=== PATIENT | male | born 1955 | race Caucasian/White ===

== ENCOUNTER 2017-03-01 13:00 | Inpatient (IN) | payer OTHER ==
[~2017-03-01] VITALS: Ht 175.3 cm; Wt 93.1 kg
--- NOTE | ~2017-03-01 | HP ---
PATIENT'S NAME: DAMARIS BRISENO [facility] AGE: 61 Y [address] ROOM: [place] [address] [place] [facility] [place] DATE: 03/01/2017 History & Physical DISCHARGE DATE: FAMILY PHYSICIAN: Sylvain Flores MD ATTENDING PHYSICIAN: David HOUSTON DATE OF SERVICE: CHIEF COMPLAINT: Infected diabetic foot ulcer. HISTORY OF PRESENT ILLNESS: The patient is a 61-year-old gentleman with a history of diabetes mellitus, type 2 and diabetic neuropathy who presents here from [facility] with diabetic foot ulcer. The patient was initially seen by his primary care physician and was started on oral antibiotic for his diabetic foot ulcer. The patient was started on Bactrim. The patient was treated for 10 days, however, symptoms did not improve. The patient's right foot diabetic ulcer increased in size, and swelling and erythema. The patient was admitted to [facility] on 02/27/2017 and was started on gentamicin and Rocephin. While inpatient, the patient was also seen by Podiatry. The patient was transferred to our facility for Vascular Surgery evaluation. The patient currently denies chest pain, shortness of breath, fever, chills, abdominal pain, nausea, vomiting, weight loss, night sweats, poor appetite, diarrhea, or constipation. At the outside hospital, wound culture was taken and showed beta-hemolytic streptococcus. PAST MEDICAL HISTORY: 1. Diabetes mellitus, type 2. 2. Hypertension. 3. Hyperlipidemia. PAST SURGICAL HISTORY: He has no surgical history. FAMILY HISTORY: Father has a history of coronary artery disease. Mother had history of lung cancer. 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 He denies smoking and drinking. MEDICATIONS: PATIENT'S NAME: DAMARIS BRISENO [facility] AGE: 61 Y [address] ROOM: [place] [address] LOC[place]: [facility] [place] ADMIT DATE: 03/01/2017 History & Physical DISCHARGE DATE: FAMILY PHYSICIAN: Sylvain Flores MD ATTENDING PHYSICIAN: David HOUSTON Currently being reconciled. REVIEW OF SYSTEMS: All systems have been reviewed and are negative except for what I mentioned in the HPI. PHYSICAL EXAMINATION: VITAL SIGNS: Temperature 98.9, blood pressure 136/78, pulse rate of 66, and respiratory rate 16. GENERAL APPEARANCE: The patient is lying on bed in no acute distress. HEENT: Head; normocephalic and atraumatic. Eyes; extraocular muscles intact. Nose; no nasal discharge. Ears; no ear discharge. Oral cavity; dry oral mucosa. CHEST: Clear to auscultation bilaterally. HEART: Regular rate and rhythm. Grade 2 systolic murmur heard in the left 6th intercostal. ABDOMEN: Soft, nontender, and nondistended. Bowel sounds present. SKIN: Warm to touch. WHARFINGER CHIEF: The patient is alert and oriented x3. Motor and sensory grossly intact. EXTREMITIES: Right foot medial aspect of the MTP shows ulceration with necrotic change and granulation. No drainable abscess is noted. Moderate erythema surrounds the ulcer. Also noted the patient to have right 3rd toe necrotic changes and swelling. Bilateral lower extremity dorsalis pedis artery pulses present, 2+. LABORATORY DATA AND IMAGING STUDIES: Laboratories done from the outside hospital shows elevated gentamicin level of 3.89 ug/mL. White blood cell count of 19, hemoglobin of 13.0, and platelets of 383,000. These laboratories were from February 27. Wound culture from the outside hospital shows beta-hemolytic streptococcus. ASSESSMENT AND PLAN: 1. Diabetic foot ulcer with cellulitis. There is a concern for infection of bone and osteomyelitis. Even though, wound culture shows beta-hemolytic streptococcus, we will broaden the patient's antibiotic. We will avoid vancomycin since the patient has high gentamicin trough level of 3.89. We will start the patient on Zyvox for methicillin-resistant Staphylococcus aureus coverage, and also add cefepime for gram-negative coverage with Pseudomonas coverage. We will acquire blood culture x2. We will also acquire sedimentation rate, lactate, and procalcitonin. Discussed the case with Dr. Louis to acquire MRI with and without contrast of the foot to further investigate osteomyelitis. 2. Diabetes mellitus, type 2. We will hold metformin for now. We will continue Januvia and glipizide. We will add sliding scale insulin. PATIENT'S NAME: DAMARIS BRISENO [facility] AGE: 61 Y [address] ROOM: [place] [address] LOC[place]: [facility] [place]MIT DATE: 03/01/2017 History & Physical DISCHARGE DATE: FAMILY PHYSICIAN: Sylvain Flores MD ATTENDING PHYSICIAN: David HOUSTON 3. Hypertension, stable. We will continue home medication. 4. Hyperlipidemia. We will continue simvastatin. Greater than 45 minutes were spent on patient's care. 50% of the time was spent with direct patient's care. Discussed the case with Dr. Flores, who is the doctor from [place]. Also discussed the case with Dr. Louis. The patient's questions were answered with satisfaction. Code status on admission, full code. MD NIELS CADE/modl /[id number] D: [id number] T: [id number] HISTORY & PHYSICAL
--- NOTE | ~2017-03-01 | OR ---
PATIENT'S NAME: DAMARIS BRISENO [facility] AGE: 61 Y [address] ROOM: [place] [address] [place] [facility] [place]: 03/01/2017 OR/Procedure Report DISCHARGE DATE: FAMILY PHYSICIAN: Sylvain Flores MD ATTENDING PHYSICIAN: David HOUSTON SURGEON: Jeevan Louis MD DUTY ENGINEER: DATE OF PROCEDURE: 03/08/2017 PREOPERATIVE DIAGNOSIS: Infected diabetic foot. POSTOPERATIVE DIAGNOSIS: Infected diabetic foot. PROCEDURE: Sharp debridement of previous TMA site with closure of wound. INTERNATIONAL BANK MANAGER: Tosha Milligan. ANESTHESIA: General. ESTIMATED BLOOD LOSS: 20 mL. OPERATIVE FINDINGS: Closure of wound at the end of case. DESCRIPTION OF PROCEDURE: The patient was brought to the operating room, placed supine on table, prepped and draped in a sterile manner after being placed under general anesthesia. The patient had received antibiotics on the floor. The patient is status post guillotine TMA approximately five days ago. He is not here for wound washout and possible closure. We irrigated the wound with pulse irrigation, then we sharply debrided any remaining nonviable tissue. We explored the wound to make sure there was no further pus pockets and we did not find any. We then once again copiously irrigated the wound and then we reapproximated the anterior and posterior flaps with interrupted 1-0 nylon mattress sutures. On completion, the wound was then completely closed. The foot was wrapped in with a Kerlix, Regulo wrap. The patient was awoken in the operating room, transferred to the recovery room, back up to the floor. JEEVAN LOUIS MD FKM/modl /[id number] d: 03/09/17140 t: 03/18/171811, OPERATIVE SUMMARY
--- NOTE | ~2017-03-01 | OR ---
PATIENT'S NAME: DAMARIS BRISENO [facility] AGE: 61 Y [address] ROOM: [place] [address] [place] [facility] [place]: 03/01/2017 OR/Procedure Report DISCHARGE DATE: FAMILY PHYSICIAN: Sylvain Flores MD ATTENDING PHYSICIAN: David HOUSTON SURGEON: Jeevan Louis MD SAND TESTER: DATE OF PROCEDURE: 03/02/2017 PREOPERATIVE DIAGNOSIS: Infected diabetic foot. POSTOPERATIVE DIAGNOSIS: Infected diabetic foot. PROCEDURE: Guillotine right foot transmetatarsal amputation. INFORMATION SECURITY SYSTEMS INSTRUCTOR: Ofelia Oleary MD. ANESTHESIA: General. ESTIMATED BLOOD LOSS: 100 mL. OPERATIVE FINDINGS: Severe osteomyelitis with necrotic tissue surrounding all the toes of the foot, resected back to clean margins. Wound was left open. DESCRIPTION OF PROCEDURE: The patient was brought to the operating room, placed under general anesthesia, prepped and draped in a sterile manner. Preoperative time-out was performed. The patient received preoperative antibiotics. We made a base of toe incision around all 5 toes with immediate evacuation of pus, especially from the great toe. We then transected all the metatarsal bones using a reticulating saw. There was a large amount of necrotic tissue, especially on the plantar surface, which was all sharply resected. We then resected back the bones further back to healthy-sounding bone which did not appear osteomyelitic. We sent bone cultures as well as wound cultures. We then copiously irrigated the wound with antibiotic solution. We achieved hemostasis. After allowing the tourniquet to come down, we used a total tourniquet time of 27 minutes. We then irrigated the wound with Dakin solution and then packed it with Dakin solution for antibiotic coverage. We then wrapped the foot in Kerlix and Regulo. The patient tolerated the procedure well and transferred to the recovery room and up to the floor. JEEVAN LOUIS MD PATIENT'S NAME: DAMARIS BRISENO [facility] AGE: 61 Y [address] ROOM: [place] [address] [place] [facility] [place]: 03/01/2017 OR/Procedure Report DISCHARGE DATE: FAMILY PHYSICIAN: Sylvain Flores MD ATTENDING PHYSICIAN: David HOUSTON/ace /[id number] d: 03/02/17 1805 t: 03/06/17 1544, OPERATIVE SUMMARY
--- NOTE | ~2017-03-01 | DS ---
PATIENT'S NAME: DAMARIS BRISENO [facility] AGE: 61 Y [address] ROOM: [address] [place], [place] [address] LOCATION: [facility] [place] ADMIT DATE: 03/01/2017 Discharge Summary DISCHARGE DATE: 03/12/2017 FAMILY PHYSICIAN: Sylvain Flores MD ATTENDING PHYSICIAN: David Jimenez PRINCIPAL DIAGNOSES: 1. Diabetic foot infection. 2. Diabetes mellitus type 2, poorly controlled. 3. Essential hypertension. 4. Hyperlipidemia. CONSULTING PROVIDER: Dr. Jeevan Louis, Vascular. PRINCIPAL PROCEDURES: Principal procedures occurred while hospitalized; 1. Guillotine right foot transmetatarsal amputation on 03/02/2017. 2. Sharp debridement of previous amputation site with closure of wound on 03/08/2017. HOSPITAL COURSE: Please reference any of the admitting data to the history and physical as dictated by Dr. David Jimenez. A 61-year-old with a history significant for type 2 diabetes mellitus and neuropathy, who presented with a diabetic foot ulcer with surrounding cellulitis and concern for infection of the bone. Sepsis workup was obtained. The patient was started on Zyvox and cefepime intravenously. A Vascular Surgery consult was ordered. MRI was considered but deferred, and the patient was taken for right transmetatarsal amputation and the findings included severe osteomyelitis with necrotic tissue surrounding the toes of the foot. It was resected back to clean margins and the wound was left open. The patient was given oral and IV analgesia. He was made nonweightbearing and given physical therapy. The patient was made daily wet-to-dry dressing changes with Dakin solution. Cultures from an initial swab showed group B Strep agalactiae and Staphylococcus lugdunensis with moderate growth. Blood cultures remained negative. The patient was discussed in depth with Infectious Disease and IV antibiotics were narrowed accordingly. Vascular surgeon felt the patient should require at least four weeks of antibiotics. Drug of choice was Ancef. The patient then went for closure on 03/08/2017 without any complications. Dressing changes were changed to Betadine swab and twice daily dry dressings. A PICC line was then placed after approval from vascular surgeon. Home antibiotics were arranged. The patient's diabetes was managed with insulin. His A1c was 8.9. We did have Diabetes Education evaluate the patient and give him further or intensive education on the importance of diabetes management. We titrated Levemir and PATIENT'S NAME: DAMARIS BRISENO [facility] AGE: 61 Y [address] ROOM: [address] [facility] [facility] [address] LOCATION: [facility] [place]MIT DATE: 03/01/2017 Discharge Summary DISCHARGE DATE: 03/12/2017 FAMILY PHYSICIAN: Sylvain Flores MD ATTENDING PHYSICIAN: David Jimenez trialed prandial and corrective insulin. Sugars still remained labile between 100 and 300. He was given further dietary instructions. By the day of discharge, the patient was transitioned back to his oral anti-glycemic regimen and recommended to take his blood sugar at least two or three times daily with close followup with his primary care provider as the patient may require further control as an outpatient. Close observation of his lab findings were monitored. Initial presentation showed significant leukocytosis which had resolved by the day of discharge. His creatinine which was initially normal did increase to 1.5, and with some IV hydration, returned to 1.2 and 1.3 respectively. The patient was seen by both Physical Therapy and Occupational Therapy and was evaluated and treated appropriately. The patient was felt stable enough to transition to the home setting. LABORATORY DATA: Pertinent positives as described above. Hemoglobin A1c was 8.9. The patient's initial presentation found a white blood cell count of 19.6, normalizing to 9.9; hemoglobin of 12.1; hematocrit of 36.6; and platelet count 259. His renal function showed a BUN of 21 and a creatinine of 1.3 down from 1.5. Sodium 136, potassium 4.8, chloride 103, CO2 of 26, calcium 8.1. Albumin of 2.3. Phosphorus of 2.9. His sedimentation rate was 105 and 92 respectively. CRP of 1.60. Procalcitonin level of 0.15. Vitamin D level still pending at the time of discharge. Microbiology data showed a blood culture that was no growth. A left foot swab showing Strep agalactiae group B, moderate growth and Staphylococcus lugdunensis, moderate growth. Surgical path report shows ulceration with extensive ischemic changes, but no evidence of osteomyelitis was identified pathology. Echocardiogram; estimated left ventricular ejection fraction of 50% to 55% with mild concentric left ventricular hypertrophy. The right and left atrium were mildly dilated. There is mild pulmonary hypertension noted. DISCHARGE MEDICATIONS: 1. Cefazolin 2 g intravenous every 8 hours for 4 weeks, stop date 04/07/2017. 2. Amlodipine 10 mg p.o. every day. 3. Vitamin B12, 1000 mcg p.o. every day. 4. Enalapril 5 mg p.o. twice daily. 5. Florastor 250 mg p.o. twice daily. 6. Janumet mg p.o. twice daily. PATIENT'S NAME: DAMARIS BRISENO [facility] AGE: 61 Y [address] ROOM: [place] [address] LOCATION: [facility] [place]MIT DATE: 03/01/2017 Discharge Summary DISCHARGE DATE: 03/12/2017 FAMILY PHYSICIAN: Sylvain Flores MD ATTENDING PHYSICIAN: David Jimenez 7. Glucotrol 10 mg p.o. twice daily before meals. 8. Iron 5/325 mg 1 to 2 tablets p.o. every 4 hours as needed for pain. DISCHARGE INSTRUCTIONS: The patient will be discharged to home with his spouse. His diet; he is to remain on cardiac and diabetic approved with low fat, low salt, low cholesterol, low carbs. His activity is as tolerated with no weightbearing to the right foot, a scooter prescription was written. Physical Therapy prescription was written. Dressings to the right foot are to be a dry dressing changed twice daily and p.r.n. saturation. Betadine painting to the wound every day. The patient should remain on Ancef 2 g IV every 8 hours with weekly CBC, BMP, CRP, and sedimentation rate, faxed to Infectious Disease, for at least four weeks with definite plan to be determined by Infectious Disease followup. FOLLOWUP: Follow up with Dr. Louis is to be in 2 weeks. Follow up with Infectious Disease is to be in 2 weeks. Follow up with Dr. Flores on March 19 at 10 a.m. He is requested to check his blood sugar 2 to 3 times daily and take to followup with his PCP. Total time in coordinating discharge plan was greater than 35 minutes. Thank you for allowing us to participate in the care of this patient by [facility]. GREGORIA BENAVIDES APRN, APRN FOR MD SHANEL LUNA/ace /[id number] CC: MD Sylvain Rodriguez MD d: t: 03/13/17 0133, DISCHARGE SUMMARY
--- NOTE | ~2017-03-01 | ECHO ---
Transthoracic Echocardiography Report (TTE) Demographics Patient Name DAMARIS BRISENO Date of Study 03/08/2017 Patient Number [id number] Visit Number [id number] Date of 1955 Room Number [address] Accession Number [id number] Gender Male Age 61 year(s) Referring Cherelleolvin Narayan Wesley Brand Ambassador Promotional Model Shahida Nicole RVT Physician Miladis Hernandez Physician Interpreting Alla Lo MD Primary Grade Teacher Physician Nae Thomas MD Supervising Ordering Physician Barbara Hernandez MD/MLP Nurse Stress Wire Rope Fabrication Supervisor Conclusions Contractility Score Summary Normal Left Ventricular contractility was noted. Summary Definity images are 81-86. The estimated left ventricular ejection fraction is 50-55%. Mild concentric left ventricular hypertrophy.Normal internal dimension.WMAs are difficult to comment on. Mildly dilated LA. The right atrium is mildly dilated. Mild mitral annular calcification. Mild mitral regurgitation by color Doppler. The aortic valve is mildly sclerotic with mild valvular . There is mild aortic regurgitation by color Doppler. Mild tricuspid regurgitation by color Doppler. There is mild pulmonary hypertension. The pulmonary pressure (RVSP) is 40 mmHg. Procedure Type of Study TTE procedure:2D Echocardiogram, Echo with Contrast. Procedure Date Date: 03/08/2017 Start: 10:04 AM Study Location: Inpatient Portable Technical Quality: Adequate visualization Indications:Heart murmur. Appropriate Use Criteria: 9 Patient Status: Routine HR: 54 bpm M-Mode/2D Measurements LV Diastolic Dimension: 4.54 cm LV Systolic Dimension: 2.14 cm LV Septum Diastolic: 1.32 cm LV PW Diastolic: 1.47 cm AO Root Dimension: 2.4 cm Cardiac Output: 3.92 l/min AV Cusp Separation: 1 cm RV Diastolic Dimension: 2.81 cm LVOT: 2 cm LVOT VTI: 23.1 cm RV Base: 2.83 cm LV Stroke volume: 72.53 ml RV Length: 5.93 cm TAPSE: 2.47 cm TDI-S': 15.2 cm/s Doppler Measurements AV Peak Velocity: 2.05 m/s MV Peak E-Wave: 1.13 m/s AV Peak Gradient: 16.81 mmHg MV Peak A-Wave: 0.87 m/s AV Mean Gradient: 10 mmHg MV E/A Ratio: 1.3 LVOT Peak Velocity: 1.02 m/s MV P1/2t: 76 msec AV P1/2t: 506 msec TR Gradient:30.03 mmHg PV Peak Velocity: 1.16 m/s Estimated RAP:10 mmHg PV Peak Gradient: 5.38 mmHg Estimated RVSP: 40 mmHg Estimated PASP: 40.03 mmHg E' Septal Velocity: 0.08 m/s A' Septal Velocity: 0.1 m/s E' Lateral Velocity: 0.08 m/s A' Lateral Velocity: 0.12 m/s Findings Left Ventricle Mild concentric left ventricular hypertrophy with normal EF and internal dimension.WMAs are difficult to comment on. Right Ventricle Normal right ventricle structure and function. Left Atrium Mildly dilated LA. Right Atrium The right atrium is mildly dilated. Mitral Valve Mild mitral annular calcification. Mild mitral regurgitation by color Doppler. Aortic Valve The aortic valve is mildly sclerotic with the non coronary cusp is mostly fixed and the other leaflets are moderately restricted. There is mild valvular . There is mild aortic regurgitation by color Doppler. Tricuspid Valve Mild tricuspid regurgitation by color Doppler. There is mild pulmonary hypertension. The pulmonary pressure (RVSP) is 40 mmHg. Pulmonic Valve Normal pulmonic valve structure and function. Pericardial Effusion No evidence of pericardial effusion. Miscellaneous Visualized portions of the aortic root and ascending aorta appear normal in size. Pleural Effusion No evidence of pleural effusion. Contractility Score LV regional wall motion:(0-Non visualized 1-Normal 2-Hypokinesis 3-Akinesis 4-Dyskinesis 5-Aneurysm) Signature dtt: Martha Soni dtd: 03/08/17 1004 Physician Self Edit
[2017-03-01 19:24] LABS: BASOPHIL # 0.1 K/uL (0.0-0.2); BASOPHIL % 0.4 %; EOSINOPHIL # 0.2 K/uL (0.0-0.5); EOSINOPHIL % 0.8 %; HEMATOCRIT 37.6 % (37.0-53.0); HEMOGLOBIN 13.1 g/dL (11.0-16.0); IMMATURE GRANULOCYTE # 0.3 K/uL (0.0-0.3); IMMATURE GRANULOCYTE % 1.3 %; LYMPHOCYTE # 1.5 K/uL (0.8-4.0); LYMPHOCYTE % 7.6 %; MCH 29.9 pg (27.0-34.0); MCHC 34.8 gm/dL (32.0-36.5); MCV 85.8 fl (83.0-98.0); MONOCYTE % 10.1 %; MPV 9.4 fl (9.4-12.4); NEUTROPHIL # (ANC) 15.7 K/uL (1.4-9.0); NEUTROPHIL % 79.8 %; NRBC % 0 /100WBC (0-0.00); PLATELET COUNT 417 K/uL (150-450); RBC 4.38 M/uL (3.50-5.50); RDW-CV 12.2 % (11.9-14.6)
[2017-03-01 19:31] LABS: WBC 19.6 K/uL (4.0-11.0)
[2017-03-01 19:48] LABS: ALBUMIN 2.4 gm/dL (3.5-5.0); ALK PHOS 91 IU/L (33-138); ALT 23 IU/L (12-78); ANION GAP 15.5 (10.0-19.0); AST 25 IU/L (10-40); BLOOD UREA NITROGEN 17 mg/dL (6-24); CALCIUM 8.9 mg/dL (8.5-10.5); CHLORIDE 98 mMol/L (96-110); CO2 23 mMol/L (22-32); CREATININE 0.9 mg/dL (0.6-1.3); POTASSIUM 4.5 mMol/L (3.7-5.1); SODIUM 132 mMol/L (135-145); TOTAL BILIRUBIN 0.4 mg/dL (0.0-1.5); TOTAL PROTEIN 8.3 g/dL (6.0-8.4)
[2017-03-01] MEDS ORDERED: JANUMET 50-1,01 EACH PO (19:58)
[2017-03-01] MEDS ORDERED: ADVIL200 MG PO (19:59)
[2017-03-01] MEDS ORDERED: VITAMIN B-121000 MCG PO (20:00)
[2017-03-01] MEDS ORDERED: ZOCOR40 MG PO (20:00)
[2017-03-01] MEDS ORDERED: GLUCOTROL10 MG PO (20:02)
[2017-03-03 04:38] LABS: BASOPHIL # 0.1 K/uL (0.0-0.2); BASOPHIL % 0.6 %; EOSINOPHIL # 0.3 K/uL (0.0-0.5); EOSINOPHIL % 2.3 %; HEMATOCRIT 33.5 % (37.0-53.0); HEMOGLOBIN 11.2 g/dL (11.0-16.0); IMMATURE GRANULOCYTE # 0.3 K/uL (0.0-0.3); IMMATURE GRANULOCYTE % 2.1 %; LYMPHOCYTE # 1.4 K/uL (0.8-4.0); LYMPHOCYTE % 9.4 %; MCH 29.1 pg (27.0-34.0); MCHC 33.4 gm/dL (32.0-36.5); MONOCYTE # 1.9 K/uL (0.0-1.0); MONOCYTE % 12.3 %; MPV 9.1 fl (9.4-12.4); NEUTROPHIL % 73.3 %; NRBC % 0 /100WBC (0-0.00); PLATELET COUNT 350 K/uL (150-450); RBC 3.85 M/uL (3.50-5.50); RDW-CV 12.2 % (11.9-14.6)
[2017-03-03 04:53] LABS: ANION GAP 13.4 (10.0-19.0); CALCIUM 7.8 mg/dL (8.5-10.5); PHOSPHORUS 4.3 mg/dL (2.5-4.9); POTASSIUM 4.4 mMol/L (3.7-5.1)
[2017-03-03 04:57] LABS: CREATININE 1.5 mg/dL (0.6-1.3)
[2017-03-04 07:01] LABS: BASOPHIL # 0.1 K/uL (0.0-0.2); BASOPHIL % 0.6 %; EOSINOPHIL # 0.5 K/uL (0.0-0.5); EOSINOPHIL % 2.7 %; HEMATOCRIT 36.3 % (37.0-53.0); HEMOGLOBIN 12.3 g/dL (11.0-16.0); IMMATURE GRANULOCYTE # 0.4 K/uL (0.0-0.3); IMMATURE GRANULOCYTE % 2.6 %; LYMPHOCYTE # 1.5 K/uL (0.8-4.0); LYMPHOCYTE % 8.7 %; MCHC 33.9 gm/dL (32.0-36.5); MCV 85.6 fl (83.0-98.0); MONOCYTE # 1.7 K/uL (0.0-1.0); MONOCYTE % 9.7 %; MPV 9.4 fl (9.4-12.4); NEUTROPHIL % 75.7 %; NRBC % 0 /100WBC (0-0.00); PLATELET COUNT 419 K/uL (150-450); RBC 4.24 M/uL (3.50-5.50); RDW-CV 12.2 % (11.9-14.6); WBC 17.2 K/uL (4.0-11.0)
[2017-03-04 07:13] LABS: ALBUMIN 2.1 gm/dL (3.5-5.0); ANION GAP 15.6 (10.0-19.0); CALCIUM 8.2 mg/dL (8.5-10.5); CREATININE 1.3 mg/dL (0.6-1.3); PHOSPHORUS 3.5 mg/dL (2.5-4.9)
[2017-03-04 07:14] LABS: POTASSIUM 5.6 mMol/L (3.7-5.1)
[2017-03-05 04:19] LABS: BASOPHIL # 0.1 K/uL (0.0-0.2); BASOPHIL % 0.7 %; EOSINOPHIL # 0.4 K/uL (0.0-0.5); EOSINOPHIL % 2.7 %; HEMATOCRIT 34.7 % (37.0-53.0); HEMOGLOBIN 11.7 g/dL (11.0-16.0); IMMATURE GRANULOCYTE # 0.2 K/uL (0.0-0.3); IMMATURE GRANULOCYTE % 1.5 %; LYMPHOCYTE # 1.5 K/uL (0.8-4.0); LYMPHOCYTE % 10.1 %; MCHC 33.7 gm/dL (32.0-36.5); MCV 85.9 fl (83.0-98.0); MONOCYTE # 1.4 K/uL (0.0-1.0); MONOCYTE % 9.4 %; MPV 9.3 fl (9.4-12.4); NEUTROPHIL % 75.6 %; NRBC % 0 /100WBC (0-0.00); PLATELET COUNT 377 K/uL (150-450); RBC 4.04 M/uL (3.50-5.50); RDW-CV 12.1 % (11.9-14.6); WBC 14.5 K/uL (4.0-11.0)
[2017-03-05 04:37] LABS: ANION GAP 11.8 (10.0-19.0); CALCIUM 8.2 mg/dL (8.5-10.5); CREATININE 1.2 mg/dL (0.6-1.3); POTASSIUM 4.8 mMol/L (3.7-5.1)
[2017-03-06 04:23] LABS: BASOPHIL # 0.1 K/uL (0.0-0.2); BASOPHIL % 0.8 %; EOSINOPHIL # 0.4 K/uL (0.0-0.5); EOSINOPHIL % 3.1 %; HEMATOCRIT 34.7 % (37.0-53.0); HEMOGLOBIN 11.9 g/dL (11.0-16.0); IMMATURE GRANULOCYTE # 0.2 K/uL (0.0-0.3); IMMATURE GRANULOCYTE % 1.6 %; LYMPHOCYTE # 1.6 K/uL (0.8-4.0); LYMPHOCYTE % 12.5 %; MCH 29.7 pg (27.0-34.0); MCHC 34.3 gm/dL (32.0-36.5); MCV 86.5 fl (83.0-98.0); MONOCYTE # 1.2 K/uL (0.0-1.0); MONOCYTE % 9.6 %; MPV 9.5 fl (9.4-12.4); NEUTROPHIL # (ANC) 9.2 K/uL (1.4-9.0); NEUTROPHIL % 72.4 %; NRBC % 0 /100WBC (0-0.00); PLATELET COUNT 368 K/uL (150-450); RBC 4.01 M/uL (3.50-5.50); RDW-CV 12.2 % (11.9-14.6); WBC 12.6 K/uL (4.0-11.0)
[2017-03-06 04:43] LABS: ANION GAP 11.7 (10.0-19.0); CALCIUM 8.2 mg/dL (8.5-10.5); CREATININE 1.2 mg/dL (0.6-1.3); PHOSPHORUS 3.3 mg/dL (2.5-4.9); POTASSIUM 4.7 mMol/L (3.7-5.1)
[2017-03-09 05:44] LABS: BASOPHIL # 0.1 K/uL (0.0-0.2); BASOPHIL % 0.5 %; EOSINOPHIL % 0.2 %; HEMATOCRIT 35.9 % (37.0-53.0); HEMOGLOBIN 12.2 g/dL (11.0-16.0); IMMATURE GRANULOCYTE # 0.1 K/uL (0.0-0.3); IMMATURE GRANULOCYTE % 0.8 %; LYMPHOCYTE # 1.4 K/uL (0.8-4.0); LYMPHOCYTE % 10.6 %; MCH 28.9 pg (27.0-34.0); MCV 85.1 fl (83.0-98.0); MONOCYTE % 7.6 %; NEUTROPHIL # (ANC) 10.7 K/uL (1.4-9.0); NEUTROPHIL % 80.3 %; NRBC % 0 /100WBC (0-0.00); PLATELET COUNT 327 K/uL (150-450); RBC 4.22 M/uL (3.50-5.50); RDW-CV 11.9 % (11.9-14.6); WBC 13.3 K/uL (4.0-11.0)
[2017-03-09 06:00] LABS: ALBUMIN 2.4 gm/dL (3.5-5.0); ANION GAP 12.5 (10.0-19.0); CALCIUM 8.4 mg/dL (8.5-10.5); CREATININE 1.3 mg/dL (0.6-1.3); PHOSPHORUS 3.2 mg/dL (2.5-4.9); POTASSIUM 4.5 mMol/L (3.7-5.1)
[2017-03-10 05:52] LABS: BASOPHIL # 0.1 K/uL (0.0-0.2); BASOPHIL % 0.7 %; EOSINOPHIL # 0.3 K/uL (0.0-0.5); EOSINOPHIL % 3.3 %; HEMATOCRIT 36.2 % (37.0-53.0); HEMOGLOBIN 12.2 g/dL (11.0-16.0); IMMATURE GRANULOCYTE # 0.1 K/uL (0.0-0.3); LYMPHOCYTE # 1.5 K/uL (0.8-4.0); LYMPHOCYTE % 15.6 %; MCH 29.3 pg (27.0-34.0); MCHC 33.7 gm/dL (32.0-36.5); MCV 86.8 fl (83.0-98.0); MONOCYTE # 1.3 K/uL (0.0-1.0); MONOCYTE % 12.9 %; MPV 8.9 fl (9.4-12.4); NEUTROPHIL # (ANC) 6.6 K/uL (1.4-9.0); NEUTROPHIL % 66.5 %; NRBC % 0 /100WBC (0-0.00); PLATELET COUNT 262 K/uL (150-450); RBC 4.17 M/uL (3.50-5.50); RDW-CV 12.4 % (11.9-14.6); WBC 9.9 K/uL (4.0-11.0)
[2017-03-10 06:15] LABS: ALBUMIN 2.3 gm/dL (3.5-5.0); ANION GAP 11.8 (10.0-19.0); CALCIUM 8.1 mg/dL (8.5-10.5); CREATININE 1.3 mg/dL (0.6-1.3); PHOSPHORUS 2.9 mg/dL (2.5-4.9); POTASSIUM 4.8 mMol/L (3.7-5.1)
[2017-03-11 04:19] LABS: BASOPHIL # 0.1 K/uL (0.0-0.2); BASOPHIL % 0.8 %; EOSINOPHIL # 0.4 K/uL (0.0-0.5); EOSINOPHIL % 3.7 %; HEMATOCRIT 36.6 % (37.0-53.0); HEMOGLOBIN 12.1 g/dL (11.0-16.0); IMMATURE GRANULOCYTE # 0.1 K/uL (0.0-0.3); IMMATURE GRANULOCYTE % 0.9 %; LYMPHOCYTE # 1.6 K/uL (0.8-4.0); LYMPHOCYTE % 16.3 %; MCH 28.6 pg (27.0-34.0); MCHC 33.1 gm/dL (32.0-36.5); MCV 86.5 fl (83.0-98.0); MONOCYTE # 1.1 K/uL (0.0-1.0); MONOCYTE % 11.1 %; MPV 8.7 fl (9.4-12.4); NEUTROPHIL # (ANC) 6.6 K/uL (1.4-9.0); NEUTROPHIL % 67.2 %; NRBC % 0 /100WBC (0-0.00); PLATELET COUNT 259 K/uL (150-450); RBC 4.23 M/uL (3.50-5.50); RDW-CV 12.3 % (11.9-14.6); WBC 9.9 K/uL (4.0-11.0)
[2017-03-12] MEDS ORDERED: NORCO 5-325 TA1 EACH PO (10:11)
[2017-03-12] MEDS ORDERED: FLORASTOR250 MG PO (10:14)
[2017-03-12] MEDS ORDERED: CEFAZOLIN2 GM/50 ML IV (10:18)
[2017-03-12] MEDS ORDERED: NORVASC10 MG PO (10:18)
[2017-03-12] MEDS ORDERED: VASOTEC5 MG PO (10:19)
[2017-03-12] MEDS ORDERED: VASOTEC10 MG PO (10:21)
== END 2017-03-12 10:40 | disposition home health service (06) | DRG 617 ==
LOC: GMSU 16:10
PROVIDERS: Family Medicine; Internal Medicine; Nurse Practitioner Family; Physician Assistant; Surgery Vascular Surgery; ADMIT Internal Medicine
PROC: 0Y6M0ZB Detachment at Right Foot, Partial 2nd Ray, Open Approach (ICD-10-PCS; principal; 2017-03-02)
PROC: 0Y6M0Z9 Detachment at Right Foot, Partial 1st Ray, Open Approach (ICD-10-PCS; principal; 2017-03-02)
PROC: 0Y6M0ZF Detachment at Right Foot, Partial 5th Ray, Open Approach (ICD-10-PCS; principal; 2017-03-02)
PROC: 0Y6M0ZC Detachment at Right Foot, Partial 3rd Ray, Open Approach (ICD-10-PCS; principal; 2017-03-02)
PROC: 0Y6M0ZD Detachment at Right Foot, Partial 4th Ray, Open Approach (ICD-10-PCS; principal; 2017-03-02)
PROC: B246ZZZ Ultrasonography of Right and Left Heart (ICD-10-PCS; 2017-03-08)
PROC: 0JBQ0ZZ Excision of Right Foot Subcutaneous Tissue and Fascia, Open Approach (ICD-10-PCS; 2017-03-08)
DX: E11.621 Type 2 diabetes mellitus with foot ulcer (principal); E44.0 Moderate protein-calorie malnutrition; N17.9 Acute kidney failure, unspecified; T81.31XA Disruption of external operation (surgical) wound, not elsewhere classified, initial encounter; R65.10 Systemic inflammatory response syndrome (SIRS) of non-infectious origin without acute organ dysfunction; M86.171 Other acute osteomyelitis, right ankle and foot; E87.5 Hyperkalemia; E11.42 Type 2 diabetes mellitus with diabetic polyneuropathy; E78.5 Hyperlipidemia, unspecified; I10 Essential (primary) hypertension; R19.6 Halitosis; B95.1 Streptococcus, group B, as the cause of diseases classified elsewhere; Z79.84 Long term (current) use of oral hypoglycemic drugs
CPT/HCPCS: C1751; C8929; J0690; J0692; J1170; J2001; J2020; J2270; J2405; J2550; J3010; J7030; J7040; J7050; Q9957